=== PATIENT | female | born 1960 | race Caucasian/White ===

== ENCOUNTER 2017-10-23 03:54 | Inpatient (IN) ==
[2017-10-23] MEDS ORDERED: PROCHLORPERAZINE 10 MG/2 ML INJECTION IVP ONE (04:03)
--- OUTSIDE RECORDS SUMMARY | 2017-10-23 04:06 | External Medical Summary ---
:1960 Author Organization [employer] Care Team Providers Name Role Barbra Menendez Provider Role Unavailable Allergies No Known Allergies Problems Problem Type Condition Code Onset Dates Condition Status Problem Bipolar disorder, unspecified F31.9 Active Problem Knee pain 719.46 Active Problem Unspecified psychosis F29 Active Problem Alcohol dependence, uncomplicated F10.20 Active Medications Medication Code System Code Instructions Start Date End Date [place] D[place] [address]135 300 MG Orally 1 tablet in 3-39 Once a day in the the evening evening Pristiq NDC 34002-568 100 MG Orally 1 tablet 2-01 [place] [address]-544 200 MG Orally Feb 23, 1 tablet 4-60 twice daily 2015 Results No Known Results Summary Purpose [employer] Submission
--- OUTSIDE RECORDS SUMMARY | 2017-10-23 04:06 | External Medical Summary ---
:1960 Author Organization [employer] Care Team Providers Name Role Phone Magdalena Tucker Provider Role Unavailable Allergies, Adverse Reactions, Alerts Substance Reaction Event Type N.K.D.A. Info Not Available Non Drug Allergy Problems Problem Type Condition Code Onset Dates Condition Status Problem Alcohol dependence, uncomplicated F10.20 Active Problem Bipolar 1 disorder F31.9 Active Problem Knee pain 719.46 Active Assessment Epigastric pain R10.13 Active Assessment Chronic gastritis without bleeding, K29.50 Active unspecified gastritis type Medications Medication Code System Code Instructions Start Date End Date Status Dosage Aspirin NDC 84499-578 325 MG Orally 1 tablet 4-27 Once a day Aleve NDC 94665-823 220 MG Orally 1 tablet as 0-25 every 12 hrs needed Omeprazole NDC 25522-561 40 MG Orally Once December 15, 1 capsule 2-01 a day 2015 Sucralfate NDC 99077-905 1 GM Orally three December 14Jan 13, 1 tablet 0-01 times a day 2015 2016 Procedures Procedure Coding System Code Date OFFICE VISIT, EST-LOW COMPLEXITY (15 MIN.) CPT-4 52265 December 15, 2015 Vital Signs Date/Time: December 15, 2015 Temperature 98.5 F Height 64 in Weight 138.4 lbs Blood Pressure Diastolic 78 mm Hg Blood Pressure Systolic 122 mm Hg Cardiac Monitoring Heart Rate 104 /min BMI 23.75 Index Respiratory Rate 16 /min Results No Known Results Summary Purpose [employer] Submission
[2017-10-23] MEDS ORDERED: SCOPOLAMINE 1mg/3 days PATCH (Eq. 1.5 Patch) TD ONE (04:09)
[2017-10-23] MEDS ORDERED: NS 1,000 ML IV ONE ×2 (04:11→06:27)
--- NOTE | 2017-10-23 04:14 | Emergency Department Report ---
General Adult HPI - General Chief complaint: Nausea/Vomiting/Diarrhea Stated complaint: Diff Breathing Time Seen by Provider: 10/23/17 03:59 Source: patient, EMS Mode of arrival: EMS Limitations: other (she presents and almost hysterical fashion.) - History of Present Illness HPI narrative: The patient's chief complaint is "I can't breathe," however the patient clearly is breathing with a normal O2 saturation and elevated respiratory rate. Patient appears severely anxious, retches constantly, and it's very frustrated by any questions that are asked. After multiple attempts at gaining information with the patient appears that she awoke suddenly approximately 30-45 minutes ago with a feeling that she couldn't breathe, began retching violently, and became diaphoretic. EMS found her in the same condition,, patient continued on scene to spit up mucus and bile. Paramedics were unable to get an EKG due to the patient's diaphoresis, and profound hysterical retching. Vital signs were essentially normal with a heart rate of 103, blood pressure 130/60, O2 saturation 98% on room air, with a respiratory rate between 20 and 30. When asked, patient states that she's never had anything like this before, however in looking up her history, patient had a history of multiple admissions in the past for violent retching, vertigo, and similar symptoms associated with binge drinking and dehydration. Patient refuses to tell me if she's had any alcohol recently Currently the patient's complaints are severe vertigo/dizziness, retching, and a feeling that she can't breathe. After the patient was able to calm herself somewhat, she does admit that she's had some alcohol, is unable to tell me how much or how long she drank, but says that her last drink was day before yesterday, Monday. Patient says that she awoke with severe abdominal pain, feeling of nausea with vomiting, severe dizziness when she lays down that she describes as vertigo, and a sensation of not being able to breathe. When I reminded her, she is aware that she's had multiple recurrences of this after she is finished on alcohol, but states that she doesn't think that's what's going on this time. - Related Data Home Medications Medication Instructions Recorded Confirmed Desvenlafaxine Succinate [Pristiq] 100 mg PO DAILY #0 tab 10/10/13 10/23/17 Lamotrigine [LaMICtal] 200 mg PO HS #0 tab 10/10/13 10/23/17 Quetiapine Xr [SEROquel XR] 300 mg PO HS #0 10/10/13 10/23/17 Trazodone HCl 100 mg PO TID #0 tab 10/10/13 10/23/17 Aspirin 325 mg PO DAILY #0 02/15/16 10/23/17 Allergies Allergy/AdvReac Type Severity Reaction Status Date / Time No Known Drug Allergies AdvReac Unknown Verified 10/23/17 04:33 Review of Systems All systems: reviewed and negative except as stated PFSH Alcohol abuse Bipolar with depression Bipolar affective disorder Insomnia Recurrent vertigo Pancreatitis Surgical History: . Hysterectomy. Benign breast cyst removal - Social History Smoking status: Unknown if ever smoked Substance use type: does not use Alcohol intake frequency: other (patient denies) Physical Exam - Limitations Limitations: altered mental status (patient is nearly hysterical, and continues aziza retching. However when the patient is pressed for answers, she is able to stop retching and can carry on a very lucid conversation for 3-4 minutes without problems. Thereafter the patient continues her aziza retching) - General General appearance: anxious, other (diaphoretic, patient refuses to lay back, due to severe dizziness when she lays down. Examination is somewhat limited since the patient refuses to be in any posture except hunched over in bed in the retching posture.) - Normal Exams: Head:: Normocephalic without trauma Eyes:: Pupils are PERRLA w/ EOMI, No scleral icterus, irritation, or foreign bodies noted ENMT:: No facial trauma, nasal exudates, pharyngeal erythema, or exudates are noted Neck:: Full range of motion, without adenopathy, JVD, bruits or thyromegaly Chest/Respirations:: Clear all russell, with good airflow, and symmetry bilaterally Cardiovascular:: Regular rate and rhythm, without murmur or gallop, Pulses 2+ all extremities, capillary refill, <2 seconds all extremities Lymphatic:: No lymphadenopathy, or lymphedema noted Musculoskeletal:: No tenderness, or deformity noted, good range of motion, all extremities Integumentary:: No rashes, hives, or bruising noted, hair and nails, without abnormality Neurological:: Patient is alert, and oriented, cranial nerves, motor/sensory/ cerebellar, exams w/o gross deficits, to observation Psychiatric:: Patient exhibits, appropriate attention, emotion and affect - Abdominal Exam Abdominal exam: Present: soft, tenderness (mild epigastric tenderness or guarding no rebound), hypoactive bowel sounds. Absent: distention, guarding, rebound, rigidity Medical Decision Making - [facility] Narrative Medical decision making narrative: EKG shows a normal sinus rhythm without ischemia, ectopy, or infarction. Patient is given Ativan 1 mg and Compazine 10 mg IV - CBC - white blood cell count with no significant left shift CMP/L - mild scattered electro abnormalities consistent with patient's prior presentations EtOH - negative D-dimer -minimal elevation at 274 Troponin -negative Single view chest x-ray - no acute changes CT head - negative UA - negative Lactate elevated at 8.9, likely service representative of significant dehydration Case is discussed with Dr. Loco Andres will admit the patient inpatient for significant dehydration vomiting and vertigo. - Lab Data Result diagrams: 10/23/17 04:02 10/23/17 04:02 Disposition Clinical Impression: Persistent vomiting, Vertigo, Dehydration Disposition: 02 To [facility] [place] Care Condition: Stable Prescriptions: No Action Lamotrigine [LaMICtal] 200 mg PO HS #0 tab Desvenlafaxine Succinate [Pristiq] 100 mg PO DAILY #0 tab Quetiapine Xr [SEROquel XR] 300 mg PO HS #0 Trazodone HCl 100 mg PO TID #0 tab Aspirin 325 mg PO DAILY #0 Referrals: Magdalena Tucker APRN [Primary Care Provider] - - Seen By: physician
[2017-10-23] MEDS ORDERED: MECLIZINE 25 MG TABLET PO PRN (06:02)
[2017-10-23] MEDS ORDERED: ONDANSETRON 4 MG/2 ML INJECTION IVP PRN (06:02)
[2017-10-23] MEDS ORDERED: NS 1,000 ML IV SCH (06:02)
[2017-10-23] MEDS ORDERED: METOCLOPRAMIDE 10mg/2ml INJECTION IVP PRN (06:02)
[2017-10-23] MEDS ORDERED: ACETAMINOPHEN 325 MG TABLET PO PRN (06:02)
[2017-10-23 06:05] VITALS: BMI 27.3
--- NOTE | 2017-10-23 06:18 | History & Physical Report ---
History of Present Illness Date: 10/23/17 Chief complaint: dizziness HPI: This is a 57 y/o female who awoke tonight with onset of vertigo with dysequilibrium. This has not occurred per her report before. ED reports that they have seen her for dizzi symptoms before. The patient has a history of bipolar disease. The patient presents to the ED and is very dramatic. Ultimately the patient had compazine, zofran and ativan which helped her sx. The patient's CT head is unremarkable. Her LA is significantly elevated @ 8. The patient will be admitted for further assessment of her dizziness. Review of Systems Review of systems: no headache, some blurring to her eyes. dizziness worse when she sits up, better laying down. standing makes it worse. The patient describes rotary sensation. no focal motor complaints, no neck or jaw pain, no chest pain, numerous episodes of nausea/vomiting with the dizziness. no abdomen pain, no diarrhea, no skin rash, no focal motor weakness, just gait instabililty and persistent nausea/vomiting Past Medical History Medical History Updates: bipolar disease Surgical History: . Hysterectomy. Benign breast cyst removal Family History Updates: unkown at this time. Family History: As Above - Social History Smoking status: Current every day smoker Substance use type: does not use Alcohol intake frequency: a few times a week Housing: house Household members: spouse Current occupational status: employed Current occupation: critical care transport nurse Does patient use chewing tobacco?: No Current residence: Apartment/Private Home Medications Home Medications Medication Instructions Recorded Confirmed Type Desvenlafaxine Succinate [Pristiq] 100 mg PO DAILY #0 tab 10/10/13 10/23/17 History Lamotrigine [LaMICtal] 200 mg PO HS #0 tab 10/10/13 10/23/17 History Quetiapine Xr [SEROquel XR] 300 mg PO HS #0 10/10/13 10/23/17 History Trazodone HCl 100 mg PO TID #0 tab 10/10/13 10/23/17 History Aspirin 325 mg PO DAILY #0 02/15/16 10/23/17 History Allergies Allergy/AdvReac Type Severity Reaction Status Date / Time No Known Drug Allergies AdvReac Unknown Verified 10/23/17 04:33 Exam Vital Signs: Temperature 97.3 F 10/23/17 06:06 Pulse Rate 102 H 10/23/17 06:06 Respiratory Rate 22 10/23/17 06:06 Blood Pressure 131/79 10/23/17 06:06 Pulse Oximetry 97 10/23/17 06:06 Telemetry Rhythm: Sinus Rhythm Height/Weight/BMI: Height 1.6 m Weight 70.1 kg Body Mass Index 27.3 - Constitutional Present: mild distress, well nourished, well developed, average body habitus, disheveled, cooperative - Routine HEENT Exam Head: Present: normocephalic, atraumatic Eye: Present: EOMI, PERRL, conjunctivae pink. Absent: scleral injection, nystagmus ENT: Present: mucous membranes moist - Routine Neck Exam Present: supple, full ROM - Routine Respiratory Exam Present: CTA bilaterally - Routine Cardiovascular Exam Present: RRR, S3 - Routine Abdominal Exam Present: soft, non distended, non tender - Routine Extremities Exam Present: non tender, full ROM - Routine Back/Spine/Pelvis Exam Back/Spine: Present: full ROM - Routine Skin Exam Present: intact - Routine Neurological Exam Present: alert, oriented X3, CN II-XII intact, abnormal gait, moving all extremities, normal tone, vision grossly intact, hearing grossly intact, normal speech. Absent: sensory deficit, motor deficit, altered mental status, facial asymmetry, tremors, asterixis - Routine Psychiatric Exam Present: normal affect Results - Labs CBC & Chem 7: 10/23/17 04:02 10/23/17 04:02 Labs: reviewed and will be discussed below Microbiology Results: Microbiology 10/23/17 05:40 Peripheral/Iv Start Gram Stain - Final Not performed 10/23/17 05:40 Peripheral/Iv Start Gram Stain - Final Not performed - ABG Interpretation Additional comments: pCXR no acute process CT head no acute process Assessment and Plan (1) Dehydration Current visit: No Status: Acute (2) Persistent vomiting Current visit: No Status: Acute (3) Vertigo Current visit: No Status: Acute (4) Bipolar 1 disorder Current visit: No Status: Acute (5) Elevated lactic acid level Current visit: No Status: Acute Assessment and Plan: 1. dizziness acute POA: no nystagmus on exam, no change in hearing. no focal motor deficits. patient ataxic. must differentiate between central and peripheral. Patient will be treated with meclizine, ativan, hydration. CT head okay but if sx do not rapidly improve would consider MRI to exclude post CVA. 2. elevated lactic acid acute POA: etiology not clear at this time. possible stress mediated. 3 liters of fluids, cycle lactic acid and make further considerations, no source of infection initially identified. not meningeal, lungs are clear, abd is soft. UA pending. no sx to suggest intra abdominal process. 3. leukocytosis acute POA: possible demargination from acute clinial illness. see above. no source or signs of infection currently 4. bipolar disease chronic POA: have pharmacy work with patient to ensure adequate MAR, have continued her psych meds as indicated in med rec 5. DVT ppx; SCD, lovenox 6. gastric ppx: PPI DVT Prophylaxis: SCD's, Lovenox GI Prophylaxis: Protonix Resuscitation Status: Full Code - Time spent with patient Time with patient PN: 30 minutes - Physician Narrative Physician: Kim Cespedes MD Narrative: Date: 10/23/17 Time: 1020 Dr. Andres's note reviewed. Ms. Mello interviewed and examined. CC: Shaking, dizziness, can't breathe HPI: Padmini is a 57-year-old female who reports a single episode of emesis yesterday afternoon after eating [employer] hamburger after which she nonspecifically didn't feel well and napped on the couch. She awoke in the middle of the night, stood up and reports that she could not breathe. She began vomiting, shaking, and was dizzy going on to describe that "I couldn't stand it ", she was going in circles and reports double vision. She sat back down and had her boyfriend called EMS. She denies tinnitus but reports her ears are itchy , she can hear better than normal. She describes her vision as foggy with some double vision if she moves her eyes too fast to one side or the other. She is dizzy/spinning if she stands up or lays down or looks to the right or the left but is not symptomatic if she is seated in a semi-recumbent or upright position. She doesn't feel that she has a URI but complains of chronic nasal congestion for which she uses Afrin several times daily. She reports that she feels like she is in a panic because she keeps falling "all over the place". She denies history of panic attacks or prior psychiatric hospitalizations. The patient denies focal motor weakness or deficits or focal sensory changes. She denies prior episodes of vertigo or dizziness but review of hospital records indicate she's been seen in the emergency room on several occasions with vertigo /vomiting/shaking and was hospitalized in September 2013 with similar symptoms although dyspnea was not described during prior events. All prior events occurred in association with recent alcohol use and patient acknowledges binging 2 days ago at which time she drank about half a pint of whiskey. Patient complains of generalized pain at present, denies sputum production, sore throat, nasal drainage, cough/sputum production, diarrhea, abdominal pain ( although reported abdominal pain in the emergency room), dysuria, or hematuria. PH/SH/FH: agree with that recorded above by Dr. Andres with additions of DJD and prior skin cancer resections; old records indicate history of pancreatitis. Patient's father had Alzheimer's disease, one uncle had lymphoma, and patient's mother of a "cyst on her stomach" Patient describes smoking occasionally indicating a few cigarettes now and then and that she may not smoke for weeks or months, binge drinks and has history of alcohol abuse; primary provider is Shannen Beltran APRN, and patient wants her boyfriend and sister to make decisions for her if alternate decision-maker is needed. She is a full code. ROS: 10 point review as per history of present illness and patient describes some mild arthritis involving her hands and knees but otherwise negative. EXAM: General-anxious/apprehensive female, some push of speech present, 97.3, 97, 18, 95% room air, 124/75 HEENT-PERRL (4mm-->3mm), EOMI without nystagmus however patient is uncomfortable with upper/lower/left gaze, conjunctiva clear, sclera anicteric, conjugate gaze, external auditory canals and tympanic membranes are unremarkable , facial structures symmetric, oropharynx clear, neck supple and without adenopathy Lungs-respirations nonlabored, good airflow, breath sounds clear posteriorly/ anteriorly Cardiac-regular rhythm, S1 and S2 Abd-soft, nontender, no guarding, bowel sounds hypoactive Ext-without edema Skin-skin warm/moist without erythema, wounds, rash Neuro-cranial nerves III through XII intact, no nystagmus, motor tone normal, drier tender naphthalene 4/5 bilaterally, no drift of upper extremities but mild coarse tremor present with arms outstretched L>R, deltoids 4+/5 bilaterally, plantar flexion 5 /5, able to raise each leg off the bed and hold it up against gentle pressure but some breakaway weakness present. Sensation intact to light touch 4 extremities, proprioception poor. Psych-anxious DATA: CBC as noted above with 68% neutrophils, 3% bands. Electrolytes as above , potassium 3.5-3.7, magnesium 1.8-1.6; AST 49, ALT 55, alkaline phosphatase 134 , bilirubin 0.4 Lactic acid 8.9-1.9-1.4; procalcitonin 0.11 Alcohol <10 Chest x-ray reviewed by myself-NAD CT head also reviewed by myself-no acute pathology and sinuses are clear A/P: Vertigo/dizziness Nausea/vomiting Acute dyspnea without hypoxia Tremulousness Bipolar affective disorder Alcohol abuse/binge alcohol consumption Leukocytosis Lactic acidosis Transaminitis Patient is hemodynamically stable and has received 30 mL/kg fluid bolus in response to lactic acid elevation noted initially in the emergency room. Beyond emesis and questionable abdominal pain reported initially there is no suggestion of an acute infection and procalcitonin is reassuringly normal. Patient does have a long history of alcohol abuse and transaminases are elevated as they have been previously by review of past labs. Review of records indicates patient has been seen in the ER and hospital for episodes of dizziness with nausea and vomiting previously associated with alcohol use and I suspect that recent binging is the primary trigger. She has no neurological symptoms or neurological findings to suggest posterior fossa disease. She describes some vague visual symptoms will be closely followed but at present do not clearly fit into a pattern that is suspicious. Continue hydration, replace potassium/magnesium. Check B-12 as proprioception is poor. Initiate thiamine and folic acid. Cannot fully exclude alcohol withdrawal and will need supplemental history from family to determine extent of alcohol use in the recent past. Some components of presentation suggest panic attack and lorazepam will be utilized to help with anxiety which will also benefit any alcohol withdrawal symptoms present. Home medications for bipolar affective disorder resumed. Hospital Course Summary Disclaimer: The visit summary below is not to be considered part of the above Progress Note.
[2017-10-23] MEDS ORDERED: SALINE FLUSH 10ml SYRINGE IV PRN (06:27)
[2017-10-23] MEDS: PANTOPRAZOLE 40 MG INJECTION IVP SCH ×2 (06:30→17:21)
[2017-10-23] MEDS ORDERED: SALINE 0.65% NASAL SPRAY 44 ML BOTTLE EA NOSTRIL PRN (06:31)
[2017-10-23] MEDS: SALINE FLUSH 10ml SYRINGE IVF PRN ×3 (08:18→17:21)
[2017-10-23] MEDS: MORPHINE SULFATE 2mg INJECTION IVP PRN ×4 (08:18→23:52)
[2017-10-23] MEDS: POLYETHYL GLYCOL 3350 17gm PACKET PO SCH (08:18)
--- NOTE | 2017-10-23 09:08 | CT Scan Report ---
Indication: severe vertigo PROCEDURE: CT head/brain wo con: Encounter: Initial Comparison: February 15, 2016 Technique: Axial CT images through the head were performed without contrast. Iterative Reconstruction dose reducing technique was utilized. FINDINGS: The ventricles are of normal size, shape, and contour for the patient's age. The brainstem, cerebellum, and cerebral hemispheres have a normal morphology and CT attenuation. There is no evidence of midline displacement. No hemorrhage, signs of acute territorial stroke, mass effect, mass lesions, or edema is evident. The visualized portions of the skull base, midface, and calvarium demonstrate no abnormality. The paranasal sinuses are well aerated and free of significant disease. The tympanic and mastoid cavities appear normal. IMPRESSION: No acute intracranial abnormality or hemorrhage. There is a preliminary report by [facility]. .
--- NOTE | 2017-10-23 09:09 | XRay Report ---
Indication: dyspnea PROCEDURE: XR chest 1V: Encounter: Initial Comparison: July 30, 2015 FINDINGS: The lungs are clear. There is no abnormal airspace opacity, pleural effusion or pneumothorax identified. The heart size, pulmonary vasculature and mediastinum are within normal limits. No significant skeletal abnormality is seen. IMPRESSION: No acute cardiopulmonary abnormality. .
[2017-10-23] MEDS: ASPIRIN 325 MG TABLET PO SCH (09:13)
[2017-10-23] MEDS: ENOXAPARIN 40 MG/0.4 ML INJECTION SQ SCH (09:14)
[2017-10-23] MEDS: TRAZODONE 100 MG TABLET PO SCH ×3 (09:15→20:59)
[2017-10-23] MEDS: Desvenlafaxine SR 50 MG TABLET PO SCH (09:15)
[2017-10-23] MEDS ORDERED: LORazepam 1 MG TABLET PO PRN (10:45)
[2017-10-23] MEDS ORDERED: THIAMINE 100 MG, FOLIC ACID INJ 1 MG, MULTI-VIT INFUSION 10 ML in NS 1,000 ML IV ONE (10:51)
[2017-10-23] MEDS: MAGNESIUM SULFATE 1gm PREMIX 1 GM/100 ML BAG IV SCH ×2 (11:14→12:38)
[2017-10-23] MEDS: NS with KCL 20 mEq 1,000 ML IV SCH ×2 (15:41→23:47)
[2017-10-23] MEDS ORDERED: LAMOTRIGINE 200 MG TABLET PO SCH (21:00)
[2017-10-24] MEDS: MORPHINE SULFATE 2mg INJECTION IVP PRN ×2 (02:18→08:23)
[2017-10-24] MEDS: PANTOPRAZOLE 40 MG INJECTION IVP SCH (06:12)
[2017-10-24] MEDS: NS with KCL 20 mEq 1,000 ML IV SCH (07:15)
[2017-10-24] MEDS: TRAZODONE 100 MG TABLET PO SCH ×2 (08:23→15:20)
[2017-10-24] MEDS: Desvenlafaxine SR 50 MG TABLET PO SCH (08:23)
[2017-10-24] MEDS: ENOXAPARIN 40 MG/0.4 ML INJECTION SQ SCH (08:23)
[2017-10-24] MEDS: POLYETHYL GLYCOL 3350 17gm PACKET PO SCH (08:23)
[2017-10-24] MEDS: ASPIRIN 325 MG TABLET PO SCH (08:23)
[2017-10-24] MEDS ORDERED: FOLIC ACID 1 MG TABLET PO SCH (09:00)
[2017-10-24] MEDS ORDERED: CALCIUM CARBONATE Chewable 750mg TABLET PO PRN (14:12)
[2017-10-24] MEDS ORDERED: NAPROXEN 220 MG TABLET PO PRN (14:13)
[2017-10-24 15:22] VITALS: BP 144/79; PULSE 88; RESP 16; TEMP 98.2; O2SAT 96
--- NOTE | 2017-10-24 17:39 | Discharge Summary ---
Discharge Information Date of admission: 10/23/17 05:49 Anticipated date of discharge: 10/24/17 Attending Physician: Kim Cespedes MD Primary care physician: Magdalena Tucker APRN - Discharge Diagnosis (1) Vertigo Status: Inactive (2) Persistent vomiting Status: Inactive (3) Dehydration Status: Inactive (4) Bipolar 1 disorder Status: Acute (5) Elevated lactic acid level Status: Acute Vertigo/dizziness Nausea/vomiting Dehydration Acute dyspnea without hypoxia Tremulousness Bipolar affective disorder Alcohol abuse/binge alcohol consumption Leukocytosis Lactic acidosis Transaminitis - Laboratory Labs: On admission white count was 17.9 with 68% neutrophils, 3% bands. D-dimer 274, electrolytes unremarkable, creatinine 0.7, AST 49, ALT 55, alkaline phosphatase 134. Alcohol level on admission <10 Lactic acid 8.9-1.9-1.4. Procalcitonin 0.11 TSH 3.66, B-12 > 1000 10/24/17 04:37 10/24/17 04:37 - Radiology Radiology: Chest x-ray on 10/23/17 revealed no acute cardiopulmonary disease. ----- CT head without contrast on 10/23/17: The ventricles are of normal size, shape, and contour for the patient's age. The brainstem, cerebellum, and cerebral hemispheres have a normal morphology and CT attenuation. There is no evidence of midline displacement. No hemorrhage, signs of acute territorial stroke, mass effect, mass lesions, or edema is evident. The visualized portions of the skull base, midface, and calvarium demonstrate no abnormality. The paranasal sinuses are well aerated and free of significant disease. The tympanic and mastoid cavities appear normal. IMPRESSION: No acute intracranial abnormality or hemorrhage. History of Present Illness HPI: This is a 57 y/o female who awoke tonight with onset of vertigo with dysequilibrium. This has not occurred per her report before. ED reports that they have seen her for dizzi symptoms before. The patient has a history of bipolar disease. The patient presents to the ED and is very dramatic. Ultimately the patient had compazine, zofran and ativan which helped her sx. The patient's CT head is unremarkable. Her LA is significantly elevated @ 8. The patient will be admitted for further assessment of her dizziness. Objective Vital signs: Temperature 98.2 F 10/24/17 15:00 Pulse Rate 88 10/24/17 15:00 Respiratory Rate 16 10/24/17 15:00 Blood Pressure 144/79 H 10/24/17 15:00 Pulse Oximetry 96 -RA 10/24/17 15:00 NAD, alert Respirations nonlabored, good airflow, breath sounds clear Regular rhythm Abdomen soft, nontender, bowel sounds present Repositioning herself and bed without difficulty, changes from supine to upright position without hesitation or discomfort Height/Weight/BMI: Height 1.6 m Weight 73.4 kg Body Mass Index 27.3 Hospital Course This is a general summary of the patient's hospital course. For more details refer to the complete medical record. Hospital course: Mrs. Mello was hospitalized with vertigo, nausea with recurrent vomiting vomiting, tremulousness, and acute dyspnea following binge alcohol use. Lactic acidosis was noted in the emergency room but resolved following initial fluid bolus given. There is no indication of a source of infection and she remained afebrile throughout the hospitalization. Scopolamine patch was placed on admission and continued the first 24 hours after which it came off but symptoms did not warrant replacement early in the morning on the . The patient used meclizine shortly after arrival but did not need additional doses thereafter. She tolerated clear liquids the morning of the and diet was advanced progressively and she was eating a regular diet at time of discharge. The patient had no neurological symptoms to suggest posterior circulation as cause of vertigo nor did she have any ear findings to suggest Mnire's or labyrinthitis. Instead vertigo/N/V appeared to be a result of preceding intoxication with subsequent dehydration. Patient has had several prior hospitalizations following alcohol use with a similar constellation of symptoms. On 10/24 the patient was significantly improved although complained of generalized body aches and some heartburn for which Pepcid was initiated. She was advised to continue using Tylenol or Aleve for myalgias. Physical therapy and occupational therapy both evaluated the patient and felt she was stable for discharge although physical therapy suggested outpatient PT for vestibular training if she has ongoing symptoms of vertigo. She ambulated in the halls with standby assistance with therapy and has been getting to and from the bathroom and in and out of bed independently. Patient is asked to follow up with Magdalena Tucker for reassessment in approximately one week. Time spent with patient: discharge greater than 30 minutes Resuscitation Status: Full Code Discharge Plan - Discharge Disposition Discharge Date: 10/24/17 Disposition: 01 Discharged Home, Self-Care *Condition: Stable Reason For Visit (Visit label in EMR): vertigo - Discharge Medications *Discharge Medications: New Famotidine [Pepcid] 20 mg PO BID #60 tab Sodium Chloride [[place] Sea] 1 spray EA NOSTRIL PRN PRN spray PRN Reason: Congestion CALCIUM CARBONATE Chewable [Tums Extra Strength] 750 mg PO PRN PRN tab.chew PRN Reason: Dyspepsia Naproxen [Aleve (Naproxen) 220 mg] 440 mg PO BID PRN tablet PRN Reason: Pain Continue Lamotrigine [LaMICtal] 200 mg PO HS #0 tab Desvenlafaxine Succinate [Pristiq] 100 mg PO DAILY #0 tab Quetiapine Xr [SEROquel XR] 300 mg PO HS #0 Trazodone HCl 100 mg PO TID #0 tab Aspirin 325 mg PO DAILY #0 - Discharge Packet/Instructions *Diet: Regular diet *Activity: As tolerate *Pain Management/Treatment: Tylenol or Aleve as needed for pain-follow package label instructions *Wound Care: Not applicable Additional Instructions: Take Pepcid (famotidine) twice daily for the next month to decrease stomach acid and heartburn associated with recent vomiting and alcohol use. Can add Tums as needed. Consider taking a B complex vitamin to get extra thiamine and folic acid. *Expected Signs/Symptoms: Muscle aches, generalized weakness, fatigue *Notify Physician if: Black stools, recurrent vomiting, vomiting of blood *During Business Hours Contact: Magdalena Tucker APRN *After Business Hours Contact: Call [facility] at [phone] and ask that the on-call physician be paged - Referrals/Follow Up - Patient Handouts Patient Handouts: Vertigo (GEN), Alcohol Intoxication (GEN) - Dismissal Complete Discharge Instructions are:: Complete Physician Narrative - Narrative Attestation Narrative: Date: 10/24/17 Time: 0367
[2017-10-24] MEDS ORDERED: FAMOTIDINE 20 MG TABLET PO SCH (21:00)
[2017-10-26] MEDS ORDERED: SCOPOLAMINE PATCH REMOVAL TD ONE (06:30)
== END 2017-10-24 18:10 | disposition home or self-care (01) | DRG 149 ==
LOC: ED 03:54 → EDHOLD 05:49 → MED 05:57
PROVIDERS: ADMIT Emergency Medicine; ATTEND Internal Medicine